=== PATIENT | male | born 1990 | race Caucasian/White ===

== ENCOUNTER 2017-05-10 23:02 | Emergency (ER) | payer BC ==
[2017-05-10 23:19] VITALS: RESP 16
[2017-05-10] MEDS ORDERED: DEXAMETHASONE 4 MG/ML VIAL IVP ONE (23:37)
[2017-05-10] MEDS ORDERED: PROMETHAZINE HCL 25 MG/ML INJ IVP ONE (23:37)
[2017-05-10] MEDS ORDERED: KETOROLAC 15 MG/1 ML SDV IVP/IM ONE (23:37)
[2017-05-10] MEDS ORDERED: NS 1,000 ML IV ONE (23:37)
[2017-05-10] MEDS ORDERED: ONDANSETRON 4MG PREPACK#2 BTL TAKEHOME ONE (23:41)
--- NOTE | 2017-05-10 23:41 | EDPHY ---
H & P Stated Complaint: c/o migraine approx 3 hrs pts, n/v/photophobia Time Seen by Provider: 05/10/17 23:32 HPI/ROS: HPI The patient presents with headache which began slowly about 4-5 hours ago which is in his mid frontal region and feels like a throbbing sensation, getting progressively worse despite taking ibuprofen and Tylenol. He has associated photophobia and nausea with vomiting. This feels like his usual migraine. His last migraine was in September of 2016, he was seen in the emergency room for this. He gets them occasionally throughout the year. He does not have any changes in his vision, weakness in his arms or legs or any trauma.. REVIEW OF SYSTEMS Constitutional: No fever, no chills. Eyes: No discharge. ENT: No sore throat. Cardiovascular: No chest pain, no palpitations. Respiratory: No cough, no shortness of breath. Gastrointestinal: No abdominal pain, no vomiting. Genitourinary: No hematuria. Musculoskeletal: No back pain. Skin: No rashes. Neurological: Positive for headache. PMHx: History of migraines Social: Prior IV drug use PHYSICAL General Appearance: Alert, no distress Eyes: Pupils equal and round no pallor or injection ENT, Mouth: Mucous membranes moist Respiratory: There are no retractions, lungs are clear to auscultation Cardiovascular: Regular rate and rhythm Gastrointestinal: Abdomen is soft and non-tender, no masses, bowel sounds normal Neurological: A&O x3, cranial nerves 2-12 intact, 5/5 strength in the upper and lower extremities which is symmetric Skin: Warm and dry, no rashes Musculoskeletal: Neck is supple non tender Extremities: symmetrical, full range of motion Psychiatric: Patient is oriented X 3, there is no agitation Source: Patient Exam Limitations: No limitations - Medical/Surgical History Hx Asthma: No Hx Chronic Respiratory Disease: No Hx Diabetes: No Hx Cardiac Disease: No Hx Renal Disease: No Hx Cirrhosis: No Hx Alcoholism: No Hx HIV/AIDS: No Hx Splenectomy or Spleen Trauma: No Other PMH: Migraines long time ago, appy, anxiety, substance abuse IV heroin 3 years, marijuana use.APPY, IBS - Social History Smoking Status: Former smoker Constitutional: Initial Vital Signs Temperature (C) 37 C 05/10/17 23:16 Heart Rate 61 05/10/17 23:16 Respiratory Rate 16 05/10/17 23:16 Blood Pressure 109/72 05/10/17 23:16 O2 Sat (%) 97 05/10/17 23:16 O2 Delivery Mode Room Air Allergies/Adverse Reactions: contrast dye Allergy (Unknown, Uncoded 10/08/16 00:56) Vomiting Home Medications: Medication Instructions Recorded ALPRAZolam [Xanax] 0.5 mg PO BID PRN 12/25/12 Methadone HCl 69 mg PO DAILY 12/25/12 clonazePAM [klonoPIN (RX)] 1 mg PO DAILY PRN 12/25/12 Medical Decision Making Differential Diagnosis: This is a 27-year-old male with history of migraine headaches who presents with headache for the last 4-5 hours which feels consistent with his prior migraine. On exam, he is somewhat uncomfortable appearing, has a normal neurologic exam. Differential diagnosis includes migraine headache, tension type headache , sinusitis. Plan for treatment with medication and IV fluids here. After medication, patient is feeling much better. Plan to discharge home from the ER. - Data Points Medications Given: Discontinued Medications Dexamethasone (Decadron Injection) 8 mg IVP EDNOW ONE Stop: 05/10/17 23:38 Last Admin: 05/10/17 23:58 Dose: 8 mg Sodium Chloride (Ns) 1,000 mls @ 3,000 mls/hr IV EDNOW ONE Stop: 05/10/17 23:56 Last Admin: 05/10/17 23:57 Dose: 1,000 mls Ketorolac Tromethamine (Toradol) 15 mg IVP/IM EDNOW ONE Stop: 05/10/17 23:38 Last Admin: 05/10/17 23:58 Dose: 15 mg Ondansetron HCl (Zofran Odt 4 Mg Prepack#2) 1 btl TAKEHOME EDNOW ONE Stop: 05/10/17 23:42 Last Admin: 05/11/17 01:11 Dose: 1 btl Promethazine HCl (Phenergan) 12.5 mg IVP EDNOW ONE Stop: 05/10/17 23:38 Last Admin: 05/10/17 23:58 Dose: 12.5 mg Departure - Departure Disposition: Home, Routine, Self-Care Clinical Impression: Migraine Qualifiers: Migraine type: unspecified Status migrainosus presence: without status migrainosus Intractability: not intractable Qualified Code(s): G43.909 - Migraine, unspecified, not intractable, without status migrainosus Condition: Good Instructions: Ondansetron (By mouth), Migraine Headache (ED) Referrals: Dinora Bashir MD [Primary Care Provider] - As per Instructions
[2017-05-11 01:12] VITALS: BP 121/74; PULSE 53; TEMP 98.1; O2SAT 96
== END 2017-05-11 01:11 | disposition home or self-care (01) ==
DX: G43.909 Migraine, unspecified, not intractable, without status migrainosus (principal); R11.2 Nausea with vomiting, unspecified; Z87.891 Personal history of nicotine dependence
CPT/HCPCS: 96374; J1100; J1885; J2550

== ENCOUNTER → 2018-02-04 | Outpatient (CLI) | payer OTHER | LOC: BMCIMAGING 16:29 | PROVIDERS: ATTEND Family Medicine | DX: K59.00 Constipation, unspecified (principal) ==

== ENCOUNTER 2018-04-22 16:55 | Emergency (ER) | payer OTHER ==
[2018-04-22] MEDS ORDERED: KETOROLAC 15 MG/1 ML SDV IVP ONE (17:14)
[2018-04-22] MEDS ORDERED: HALOPERIDOL LACT 5 MG/ML INJ IVP ONE (17:14)
[2018-04-22] MEDS ORDERED: NS 1,000 ML IV ONE (17:14)
[2018-04-22] MEDS ORDERED: DEXAMETHASONE 10 MG/ML VIAL IVP ONE (17:14)
--- NOTE | 2018-04-22 17:16 | EDPHY ---
H & P Stated Complaint: migraine/not resolved with ibuprofen Time Seen by Provider: 04/22/18 17:03 HPI/ROS: Chief Complaint: Migraine headache HPI: 27-year-old male with a history of migraines is presenting with his typical migraine. Patient began having a little bit of a headache last night but got significantly worse at about 10 o'clock this morning. Patient states right now is about a 7/10. At worst was a 9/10. He has had some nausea but no vomiting. Positive photophobia and phonophobia. It is like his typical migraines. It was not thunderclap in onset. Is not the worst headache of his life. He did take some Zofran Tylenol and ibuprofen without significant relief. He does have some flashing lights as an aura which are his typical. ROS: 10 point Review of Systems is negative except as noted in the HPI. PMH: Migraine headaches Social History: No smoking, no alcohol, occasional marijuana Family History: non-contributory Physical Exam: Gen: Awake, Alert, No Distress HEENT: Nose: no rhinorrhea Eyes: PERRLA, EOMI Mouth: Moist mucosa Neck: Supple, no JVD Chest: nontender, lungs clear to auscultation Heart: S1, S2 normal, no murmur Abd: Soft, non-tender, no guarding Back: no CVA tenderness, no midline tenderness Ext: no edema, non-tender Skin: no rash Neuro: CN II-XII intact, Sensation grossly intact, Strength 5/5 in bilateral upper and lower extremities - Personal History Current Tetanus Diphtheria and Acellular Pertussis (TDAP): Yes - Medical/Surgical History Hx Asthma: No Hx Chronic Respiratory Disease: No Hx Diabetes: No Hx Cardiac Disease: No Hx Renal Disease: No Hx Cirrhosis: No Hx Alcoholism: No Hx HIV/AIDS: No Hx Splenectomy or Spleen Trauma: No Other PMH: Migraines long time ago, appy, anxiety, substance abuse IV heroin 3 years, marijuana use.APPY, IBS - Social History Smoking Status: Former smoker Constitutional: Initial Vital Signs Temperature (C) 36.7 C 04/22/18 16:58 Heart Rate 56 L 04/22/18 16:58 Respiratory Rate 16 04/22/18 16:58 Blood Pressure 117/78 04/22/18 16:58 O2 Sat (%) 97 04/22/18 16:58 O2 Delivery Mode Room Air Allergies/Adverse Reactions: contrast dye Allergy (Unknown, Uncoded 04/22/18 16:58) Vomiting Home Medications: Medication Instructions Recorded ALPRAZolam [Xanax] 0.5 mg PO BID PRN 12/25/12 Methadone HCl 69 mg PO DAILY 12/25/12 clonazePAM [klonoPIN (RX)] 1 mg PO DAILY PRN 12/25/12 Medical Decision Making ED Course/Re-evaluation: Patient is improved after migraine cocktail. Current without complaint. Will discharge with follow-up with Neurology. Return for any concerns. - Data Points Medications Given: Discontinued Medications Dexamethasone (Decadron Injection) 10 mg IVP EDNOW ONE Stop: 04/22/18 17:15 Last Admin: 04/22/18 17:29 Dose: 10 mg Diphenhydramine HCl (Benadryl Injection) 50 mg IVP EDNOW ONE Stop: 04/22/18 17:15 Last Admin: 04/22/18 17:30 Dose: 50 mg Haloperidol Lactate (Haldol Injection) 2.5 mg IVP EDNOW ONE Stop: 04/22/18 17:15 Last Admin: 04/22/18 17:30 Dose: 2.5 mg Sodium Chloride (Ns) 1,000 mls @ 0 mls/hr IV ONCE ONE; Wide Open PRN Reason: Protocol Stop: 04/22/18 17:15 Last Admin: 04/22/18 17:36 Dose: 1,000 mls Ketorolac Tromethamine (Toradol) 15 mg IVP EDNOW ONE Stop: 04/22/18 17:15 Last Admin: 04/22/18 17:36 Dose: 15 mg Departure - Departure Disposition: Home, Routine, Self-Care Clinical Impression: Migraine Condition: Good Instructions: Migraine Headache (ED) Referrals: Raghavendra Franz DO [Doctor of Osteopathy] - As per Instructions
[2018-04-22 19:12] VITALS: BP 115/61
== END 2018-04-22 19:09 | disposition home or self-care (01) ==
DX: G43.909 Migraine, unspecified, not intractable, without status migrainosus (principal); E86.9 Volume depletion, unspecified; Z87.891 Personal history of nicotine dependence
CPT/HCPCS: 96374; J1100; J1200; J1630; J1885

== ENCOUNTER 2018-06-27 14:43 | Emergency (ER) | payer OTHER ==
[2018-06-27] MEDS ORDERED: NS 1,000 ML IV ONE (15:09)
[2018-06-27] MEDS ORDERED: METOCLOPRAMIDE 10 MG/2 ML VIAL IVP ONE (15:09)
[2018-06-27] MEDS ORDERED: DEXAMETHASONE 10 MG/ML VIAL IVP ONE (15:09)
--- NOTE | 2018-06-27 15:09 | EDPHY ---
General Time Seen by Provider: 06/27/18 15:02 Narrative: CHIEF COMPLAINT: Headache, anxious HISTORY OF PRESENT ILLNESS: Patient presents with complaints of headache anxiety. He states that he developed a headache around 11:30 or 12 today. He was running errands when it happened. Located in the forehead and behind both eyes. [id number] pain. Consistent with previous migraine type headache. No thunderclap presentation. No neck pain or stiffness. No trauma or injury. No nausea vomiting. Does have some photophobia and phonophobia. He says that he took some medication to help this, and then became very anxious as he was afraid it may be interacting with a new prescription for as citalopram. No seizure activity. No anticoagulation use. No other associated complaints or modifying factors. REVIEW OF SYSTEMS: Ten systems reviewed and are negative unless otherwise noted in the HPI PCP: Dr. Dinora Mckee SPECIALISTS: Psychiatry PAST MEDICAL HISTORY: Irritable bowel syndrome, previous substance abuse migraine, anxiety, appendicitis PAST SURGICAL HISTORY: Appendectomy SOCIAL HISTORY: Nonsmoker. Previous heroin abuser 3 years ago sober. Lives and works here independently. FAMILY HISTORY: Noncontributory EXAMINATION General Appearance: Alert, no distress Head: normocephalic, atraumatic Eyes: Pupils equal and round, no conjunctival pallor or injection. No nystagmus ENT, Mouth: Mucous membranes moist Neck: Normal inspection, supple, non-tender. No meningismus Respiratory: Lungs are clear to auscultation Cardiovascular: Regular rate and rhythm Gastrointestinal: Abdomen is soft and nontender Back: non-tender, no bony abnormalities Neurological: GCS 15. A&O, nonfocal, normal gait. No pronator drift. Normal [id number]. Skin: Warm and dry, no rash Extremities: Nontender, no pedal edema Psychiatric: Mood and affect normal DIFFERENTIAL DIAGNOSES: Including but not limited to migraine headache, cluster headache, anxiety, dehydration, subarachnoid hemorrhage subdural hematoma MDM: 3:10 p.m. Frontal and post ocular headache consistent with patient's previous migraines without any drainage from the eyes or nose. No sudden onset. No thunderclap headache. Patient feels this is related to his previous headaches and feels he has become anxious from this. I do feel he would benefit from medications for this but do not feel he warrants any testing or CT imaging. He is agreeable with this plan. Will place him on nasal cannula, administer Reglan Benadryl he is resting comfortably in no acute distress. Vital signs are within normal limits. 3:30 p.m. Notified by RN Patient began vomiting after administration of the medications. I have evaluated him and ordered promethazine IV. 3:50 p.m. Patient re-evaluated. He is feeling significantly better at this time. 4:10 p.m. Patient re-evaluated. He is feeling significantly better. No headache at this time. No nausea or vomiting. Comfortable with discharge home. He has already made an appointment with primary care physician tomorrow. They will discuss further prophylaxis for migraines. We discussed ED precautions. His girlfriend will drive him home as we did administer medications that have caused him to be somnolent. Discharged home stable condition. SUPERVISION: This patient was independently evaluated without direct involvement of or examination by the attending physician. - History Smoking Status: Former smoker - Objective Vital Signs: Initial Vital Signs Temperature (C) 99.0 F 06/27/18 14:48 Heart Rate 82 06/27/18 14:48 Respiratory Rate 16 06/27/18 14:48 Blood Pressure 143/96 H 06/27/18 14:48 O2 Sat (%) 97 06/27/18 14:48 O2 Delivery Mode Room Air O2 (L/minute) 2 Allergies/Adverse Reactions: contrast dye Allergy (Unknown, Uncoded 06/27/18 14:46) Vomiting Home Medications: Medication Instructions Recorded ALPRAZolam [Xanax] 0.5 mg PO BID PRN 12/25/12 Methadone HCl 69 mg PO DAILY 12/25/12 clonazePAM [klonoPIN (RX)] 1 mg PO DAILY PRN 12/25/12 Acet/Caffeine/Buta Fioricet 1 each PO Q6 PRN #12 tab 06/27/18 [Fioricet (*)] Escitalopram Oxalate 06/27/18 Ondansetron 06/27/18 Medications Given: Discontinued Medications Dexamethasone (Decadron Injection) 10 mg IVP EDNOW ONE Stop: 06/27/18 15:10 Last Admin: 06/27/18 15:26 Dose: 10 mg Diphenhydramine HCl (Benadryl Injection) 50 mg IVP EDNOW ONE Stop: 06/27/18 15:10 Last Admin: 06/27/18 15:26 Dose: 50 mg Sodium Chloride (Ns) 1,000 mls @ 0 mls/hr IV ONCE ONE; Wide Open PRN Reason: Protocol Stop: 06/27/18 15:10 Last Admin: 06/27/18 15:26 Dose: 1,000 mls Metoclopramide HCl (Reglan Injection) 10 mg IVP EDNOW ONE Stop: 06/27/18 15:10 Last Admin: 06/27/18 15:26 Dose: 10 mg Promethazine HCl (Phenergan) 12.5 mg IVP ONCE ONE Stop: 06/27/18 15:40 Last Admin: 06/27/18 15:41 Dose: 12.5 mg Departure - Departure Disposition: Home, Routine, Self-Care Clinical Impression: Anxiety reaction Migraine Qualifiers: Migraine type: unspecified Status migrainosus presence: without status migrainosus Intractability: not intractable Qualified Code(s): G43.909 - Migraine, unspecified, not intractable, without status migrainosus Condition: Good Instructions: Cluster Headache (ED), Migraine Headache (ED), Acute Headache (ED ) Additional Instructions: 1. Continue previous medications as prescribed 2. Fioricet as prescribed as needed 3. ED precautions as discussed 4. Keep your appointment with primary care physician tomorrow. Recommend that you discuss the possibility of migraine medications such as sumatriptan if she feels your a candidate for this. Referrals: Dinora Bashir MD [Primary Care Provider] - As per Instructions Stand Alone Forms: Work Excuse Prescriptions: Acet/Caffeine/Buta Fioricet [Fioricet (*)] 1 each PO Q6 PRN #12 tab PRN Reason: Headache
[2018-06-27] MEDS ORDERED: PROMETHAZINE HCL 25 MG/ML INJ ONE (15:32)
[2018-06-27] MEDS ORDERED: PROMETHAZINE HCL 25 MG/ML INJ IVP ONE (15:39)
[2018-06-27 16:30] VITALS: BP 123/88
== END 2018-06-27 16:30 | disposition home or self-care (01) ==
DX: G43.909 Migraine, unspecified, not intractable, without status migrainosus (principal); F41.1 Generalized anxiety disorder; E86.9 Volume depletion, unspecified; Z87.891 Personal history of nicotine dependence
CPT/HCPCS: 96374; J1100; J1200; J2550; J2765